=== PATIENT | female | born 1970 | race Caucasian/White ===

== ENCOUNTER 2022-02-11 11:48 | Outpatient (CLI) | payer SELFPAY ==
[2022-02-11] MEDS ORDERED: Iopamidol 300 61% 100 ML VIAL FS ONE (15:40)
== END 2022-02-11 11:49 | disposition home or self-care (01) ==
LOC: CSHCT 11:48
PROVIDERS: ATTEND Specialist
DX: M54.2 Cervicalgia (principal); R09.81 Nasal congestion; R09.82 Postnasal drip; M95.0 Acquired deformity of nose; J34.2 Deviated nasal septum
CPT/HCPCS: 70491; Q9967

== ENCOUNTER 2022-07-16 12:31 | Outpatient (CLI) | payer BC | END 2022-07-16 12:32 | disposition home or self-care (01) | LOC: CSHRAD 12:31 | PROVIDERS: ATTEND Otolaryngology | DX: R13.10 Dysphagia, unspecified (principal) | CPT/HCPCS: 74220 ==

== ENCOUNTER 2023-09-30 14:27 | Outpatient (CLI) | payer BC | END 2023-09-30 14:28 | disposition home or self-care (01) | LOC: CSHULT 14:27 | PROVIDERS: ATTEND Family Medicine | DX: R06.02 Shortness of breath (principal); R07.9 Chest pain, unspecified; I34.0 Nonrheumatic mitral (valve) insufficiency | CPT/HCPCS: 93306 ==

== ENCOUNTER 2023-12-28 10:24 | Outpatient (CLI) | payer BC | END 2023-12-28 10:25 | disposition home or self-care (01) | LOC: CSHMAMMO 10:24 | PROVIDERS: ATTEND Obstetrics & Gynecology | DX: Z12.31 Encounter for screening mammogram for malignant neoplasm of breast (principal); Z98.890 Other specified postprocedural states | CPT/HCPCS: 77063; 77067 ==